=== PATIENT | male | born 1980 | race Caucasian/White ===

== ENCOUNTER 2020-07-27 10:10 | Outpatient (CLI) | payer OTHER, SELFPAY ==
[2020-07-27 13:04] LABS: Semen Viscosity Not Increased (Not Increa.); Sperm Count 85.2 Mil/mL (60-150 million/mL); Volume Semen 9 mL (1.5-5.0)
[2020-07-27 13:05] LABS: Liquefaction Semen Complete in 30 min. (<30 minutes); Semen Color Opaque (Grey-opaque); Semen Immotility 20 %; Semen Morphology Result to Follow; Semen Non-Progressive Motility 30 %; Semen Progressive Motility 50 % (>32); Semen Total Motility 80 (>40% (PM+NP))
[2020-08-05 15:56] LABS: Fructose, Semen 236 mg/dL (150-600)
== END 2020-07-27 10:11 | disposition home or self-care (01) ==
PROVIDERS: PCP Obstetrics & Gynecology; Visit Provider Obstetrics & Gynecology
DX: Z30.09 Encounter for other general counseling and advice on contraception (principal)
CPT/HCPCS: 82757; 88160; 89320